=== PATIENT | female | born 1940 | race American Indian/Alaskan Native ===

== ENCOUNTER 2016-10-18 10:53 | Outpatient (CLI) | payer MEDICARE ==
--- NOTE | 2016-10-18 14:50 | Mammography Report ---
BONE DEXA:10/18/16 10:53:00 CLINICAL: Postmenopausal. No comparison. TECHNIQUE: Two site bone DEXA performed on an Hologic scanner. FINDINGS: The average BMD of the lumbar spine L1-L4 is 0.976g/cm squared with a T-score of -1.6 and a Z-score of +1.1. The average BMD of the right hip is 0.824g/cm squared with a T-score of -1.3 and a Z-score of 0. IMPRESSION: WHO classification: Osteopenia with increased fracture risk based on both spine and right hip measurements. RECOMMENDATION: Clinical correlation and routine screening. DEFINITIONS: BMD = Bone Mineral Density T-score = BMD related to mean peak bone mass of young adult (mean expressed in Standard Deviation) Z-score = Age matched BMD expressed in SD World Health Organization (WHO) Diagnostic Criteria Normal T-score > -1 SD Osteopenia T-score between -1 and -2.4 SD Osteoporosis T-score -2.5 SD or below NOTE: BMD is not the only risk factor for fracture. One should also consider factors such as the patient's age, risk of falling, previous osteoporotic fracture, family history of osteoporotic fractures, current smoker, and low body weight. Z-scores are not calculated if >80 years of age.
== END 2016-10-18 10:54 | disposition home or self-care (01) ==
LOC: SPVWC 10:53
PROVIDERS: ATTEND Family Medicine
DX: M85.88 Other specified disorders of bone density and structure, other site (principal); I10 Essential (primary) hypertension; E78.00 Pure hypercholesterolemia, unspecified; Z87.891 Personal history of nicotine dependence
CPT/HCPCS: 77080

== ENCOUNTER 2019-01-02 06:03 | Day surgery (SDC) | payer MEDICARE ==
--- NOTE | 2019-01-02 07:51 | Anesthesia Day of Surgery ---
Anesthesia Day of Surgery - Day of Surgery Patient Examined: Yes Patient H&P Reviewed: Yes Patient is NPO: Yes Beta Blockers: Yes
--- NOTE | 2019-01-02 07:51 | Anesthesia Consultation ---
Anesthesia Consult and Med Hx Date of service: 01/02/19 - Airway Anesthetic Teeth Evaluation: Partials ROM Head & Neck: Adequate Mental/Hyoid Distance: Adequate Mallampati Class: Class II Intubation Access Assessment: Probably Good - Pre-Operative Health Status ASA Pre-Surgery Classification: ASA3 Proposed Anesthetic Plan: MAC - Pulmonary Hx Smoking: No (past 20 yrs ago) Hx Asthma: No Hx Respiratory Symptoms: No SOB: No COPD: No Home Oxygen Therapy: No Hx Pneumonia: No Hx Sleep Apnea: No - Cardiovascular System Hx Hypertension: Yes Hx Coronary Artery Disease: No Hx Heart Attack/AMI: No Hx Angina: No Hx Percutaneous Transluminal Coronary Angioplasty (PTCA): No Hx Cardia Arrhythmia: No Hx Pacemaker: No Hx Internal Defibrillator: No Hx Valvular Heart Disease: No Hx Heart Murmur: No Hx Peripheral Vascular Disease: No - Central Nervous System Hx Neuromuscular Disorder: Yes (lupus) Hx Seizures: No CVA: No Hx Back Pain: Yes Hx Psychiatric Problems: No - Gastrointestinal Hx Ulcer: No Hx Gastroesophageal Reflux Disease: Yes - Endocrine Hx Renal Disease: No Hx End Stage Renal Disease: No Hx Cirrhosis: No Hx Liver Disease: No Hx Insulin Dependent Diabetes: No Hx Non-Insulin Dependent Diabetes: Yes Hx Thyroid Disease: Yes (being monitored) - Hematic Hx Anemia: No Hx Sickle Cell Disease: No - Other Systems Hx Alcohol Use: No Hx Substance Use: No Hx Cancer: No Hx Obesity: No
[2019-01-02] MEDS ORDERED: PROPOFOL 200 MG/20 ML VIAL IV ONE ×2 (08:26)
[2019-01-02] MEDS ORDERED: LIDOCAINE MPF (2%) 20 MG/1 ML VIAL 5 ML ONE (08:30)
[2019-01-02] MEDS ORDERED: SODIUM CHLORIDE 0.9% 1000 ML 1,000 ML IV SCH (09:00)
--- NOTE | 2019-01-02 09:24 | Short Stay Summary ---
Short Stay Documentation - Allergies and Medications Current Medications: Allergies hydralazine Adverse Reaction (Verified 01/02/19 08:46) Itching lisinopril Adverse Reaction (Verified 11/23/15 07:46) Unknown Sulfa (Sulfonamide Antibiotics) Adverse Reaction (Verified 11/23/15 07:46) Unknown Home Medications Medication Instructions Recorded Confirmed Last Taken Type Aspirin BABY CHEW TAB 81 mg PO DAILY 03/28/15 11/23/15 11/21/15 History Famotidine [Pepcid] 20 mg PO BID #40 tablet 03/28/15 11/23/15 11/22/15 Rx Lipitor 10 mg PO HS 03/28/15 11/23/15 Unknown History Losartan 50 mg PO DAILY 03/28/15 11/23/15 Unknown History Medrol Dose Jeff 10 mg PO DAILY 03/28/15 11/23/15 Unknown History Metformin HCl ER 1,000 mg PO HS 03/28/15 11/23/15 11/22/15 History Metformin HCl ER 500 mg PO BID 03/28/15 11/23/15 11/22/15 History Metoprolol 50 mg PO BID 03/28/15 11/23/15 11/23/15 History Minocycline HCl 100 mg PO BID 03/28/15 11/23/15 Unknown History NIFEdipine 30 mg PO DAILY 03/28/15 11/23/15 Unknown History Ranitidine HCl 300 mg PO HS 03/28/15 11/23/15 11/22/15 History hydrALAZINE 25 mg PO BID 03/28/15 11/23/15 Unknown History hydrOXYzine HCL [Atarax] 25 mg PO Q6HR PRN #40 tablet 03/28/15 11/23/15 Unknown Rx methylPREDNISolone [Medrol] 4 mg PO DAILY #1 tab.ds.pk 03/28/15 11/23/15 Unknown Rx AtorvaSTATin 10 mg PO DAILY 11/23/15 11/23/15 11/22/15 History Clonidine 0.1 mg SUBDERMAL DAILY 11/23/15 11/23/15 11/22/15 History Januvia 100 mg PO DAILY 11/23/15 11/23/15 11/22/15 History Ranitidine HCl 300 mg PO HS 11/23/15 11/23/15 11/22/15 History Valsartan-Hctz 320-12.5 mg Tab 320 mg PO DAILY 11/23/15 11/23/15 11/22/15 History Active Medications Sodium Chloride (Nacl 0.9% 1000 Ml) 1,000 mls @ 50 mls/hr IV DIRECT MAGGIE - Brief post op/procedure progress note Date of procedure: 01/02/19 Pre-op diagnosis: Colon cancer screening Post-op diagnosis: same (1. Colon polyps 2. Diverticulosis coli 3. Internal hemorrhoids) Procedure: Colonoscopy with cold biopsy polypectomy Anesthesia: MAC Findings: as above Surgeon: HORACIO ESCOTO Estimated blood loss: none Pathology: list (1. Hepatic flexure polyps 2. Descending colon polyp) Specimen disposition: to lab Condition: stable - Disposition Condition at discharge: Stable Disposition: [id number] TO HOME OR SELFCARE Short Stay Discharge Plan Activity: no restrictions Weight Bearing Status: Full Weight Bearing Diet: regular, low salt Follow up with: ANGEL HERNANDEZ DO [Primary Care Provider] - 7 Days
--- NOTE | 2019-01-02 13:14 | Post Anesthesia Evaluation ---
- Post Anesthesia Evaluation Patient Participated: Yes Airway Patent: Yes Stable Respiratory Function: Yes Nausea/Vomiting: No Temp > 96.8F: Yes Pain Manageable: Yes Adequeate Hydration: Yes Anesthesia Complications: No Block Receding Appropriately: Not Applicable Patient on Ventilator: No
[2019-01-04 13:08] VITALS: BP 108/66
== END 2019-01-02 06:04 | disposition home or self-care (01) ==
LOC: GIO 06:03
PROVIDERS: ATTEND Internal Medicine Gastroenterology
DX: Z12.11 Encounter for screening for malignant neoplasm of colon (principal); D12.3 Benign neoplasm of transverse colon; D12.4 Benign neoplasm of descending colon; M79.7 Fibromyalgia; I10 Essential (primary) hypertension; E78.00 Pure hypercholesterolemia, unspecified; E11.9 Type 2 diabetes mellitus without complications; K21.9 Gastro-esophageal reflux disease without esophagitis; H40.9 Unspecified glaucoma; E04.2 Nontoxic multinodular goiter; Z79.899 Other long term (current) drug therapy; Z88.2 Allergy status to sulfonamides; Z88.8 Allergy status to other drugs, medicaments and biological substances; Z79.4 Long term (current) use of insulin; Z79.82 Long term (current) use of aspirin; Z87.891 Personal history of nicotine dependence; Z90.710 Acquired absence of both cervix and uterus; Z98.890 Other specified postprocedural states; Z83.3 Family history of diabetes mellitus; Z82.49 Family history of ischemic heart disease and other diseases of the circulatory system
CPT/HCPCS: 45380; 82962; 88305; J2704

== ENCOUNTER 2020-02-27 13:06 | Outpatient (CLI) | payer MEDICARE ==
--- NOTE | 2020-02-27 15:34 | Cat Scan Report ---
CT ABDOMEN AND PELVIS WITHOUT CONTRAST INDICATION / CLINICAL INFORMATION: ABDOMINAL PAIN. TECHNIQUE: Axial CT images were obtained through the abdomen and pelvis without IV contrast. All CT scans at [facility] location are performed using CT dose reduction for ALARA by means of automated exposure control. COMPARISON: None available. FINDINGS: LOWER CHEST: No significant abnormality. LIVER: No significant abnormality. GALLBLADDER: Removed. BILE DUCTS: Mild pneumobilia.. PANCREAS: No significant abnormality. SPLEEN: No significant abnormality. ADRENALS: No significant abnormality. RIGHT KIDNEY and URETER: Mild right hydronephrosis. LEFT KIDNEY and URETER: No significant abnormality. STOMACH and SMALL BOWEL: postoperative changes of the stomach. COLON: No significant abnormality. Sigmoid diverticulosis. APPENDIX: No not well identified. PERITONEUM: No free fluid. No free air. No fluid collection. LYMPH NODES: No significant adenopathy. AORTA and ARTERIES: No significant abnormality. IVC and VEINS: No significant abnormality. URINARY BLADDER: Mostly collapsed. The urinary bladder wall mucosa appears at least slightly thickene d.. REPRODUCTIVE ORGANS: No significant abnormality. ADDITIONAL FINDINGS: Small fat-containing periumbilical hernia.. SKELETAL SYSTEM: No significant abnormality. IMPRESSION: Mild pneumobilia likely chronic secondary to postoperative change. No acute intra-abdominal findings are identified within the limits of the noncontrast technique. Sigmoid diverticulosis and other incid ental findings as noted above. No bowel obstruction. Signer Name: Uday Dewey MD Signed: 02/27/2020 3:30 PM Workstation Name: [id number]
== END 2020-02-27 13:07 | disposition home or self-care (01) ==
LOC: CT 13:06
PROVIDERS: ATTEND Internal Medicine Gastroenterology
DX: N13.30 Unspecified hydronephrosis (principal); K57.92 Diverticulitis of intestine, part unspecified, without perforation or abscess without bleeding; K57.30 Diverticulosis of large intestine without perforation or abscess without bleeding; K92.1 Melena; Z86.010 Personal history of colon polyps
CPT/HCPCS: 74176